=== PATIENT | female | born 1995 | race Caucasian/White ===

== ENCOUNTER 2020-09-28 07:08 | Day surgery (SDC) | payer OTHER, SELFPAY ==
[~2020-09-28] VITALS: Ht 162.6 cm; Wt 142.9 kg
[~2020-09-28 07:08] MED LIST: FAMO-90 PO; MULT-965 PO
[2020-09-28] MEDS ORDERED: KETOROLAC 60 MG/2 ML VIAL IM ONE (09:40)
[2020-09-28] MEDS ORDERED: LIDOCAINE 2% 100 MG/5 ML UJET TP ONE (09:40)
[2020-09-28] MEDS: KETOROLAC 30 MG/ML VIAL IVP ONE (09:49)
[2020-09-28] MEDS: LIDOCAINE 2% 100 MG/5 ML UJET TP ONE (10:01)
== END 2020-09-28 10:46 | disposition home or self-care (01) ==
LOC: MDS 07:08 → MMU 07:08 → MDS 10:46
PROVIDERS: ATTEND Internal Medicine Gastroenterology
DX: Z12.11 Encounter for screening for malignant neoplasm of colon (principal); K21.9 Gastro-esophageal reflux disease without esophagitis; E66.01 Morbid (severe) obesity due to excess calories; Z87.891 Personal history of nicotine dependence; Z79.899 Other long term (current) drug therapy; Z20.822 Contact with and (suspected) exposure to COVID-19
CPT/HCPCS: 45378; 81025; J1885; U0003